=== PATIENT | male | born 1960 | race Caucasian/White ===

== ENCOUNTER → 2016-09-28 | Outpatient (CLI) | payer BC ==
[2016-09-28 09:23] LABS: ALT 40 U/L (21-72); AST 26 U/L (17-59); Alkaline Phosphatase 38 U/L (38-126); Anion Gap 11 mmol/L; Blood Urea Nitrogen 19 mg/dL (9-20); Calcium 9.5 mg/dL (8.4-10.2); Carbon Dioxide 27 mmol/L (22-30); Chloride 104 mmol/L (98-107); Cholesterol 148 mg/dL (<200); Glucose 87 mg/dL (74-99); HDL Cholesterol 60 mg/dL (40-60); Non-African American GFR(MDRD) >60 (>60 ml/min/1.73 sqM); Potassium 4.4 mmol/L (3.5-5.1); Sodium 142 mmol/L (137-145); Total Bilirubin 1.3 mg/dL (0.2-1.3); Total Protein 7.3 g/dL (6.3-8.2); Triglycerides 60 mg/dL (<150)
== END | disposition home or self-care (01) ==
LOC: LABWHC1 08:19
PROVIDERS: ATTEND Internal Medicine Interventional Cardiology
DX: E78.2 Mixed hyperlipidemia (principal)
CPT/HCPCS: 36415; 80053; 80061

== ENCOUNTER → 2018-02-20 | Outpatient (CLI) | payer BC ==
[2018-02-20 10:27] LABS: ALT 47 U/L (21-72); AST 32 U/L (17-59); Albumin 4.6 g/dL (3.5-5.0); Alkaline Phosphatase 37 U/L (38-126); Anion Gap 9 mmol/L; Blood Urea Nitrogen 12 mg/dL (9-20); Calcium 9.8 mg/dL (8.4-10.2); Carbon Dioxide 27 mmol/L (22-30); Chloride 105 mmol/L (98-107); Cholesterol 195 mg/dL (<200); Glucose 104 mg/dL (74-99); HDL Cholesterol 82 mg/dL (40-60); LDL Cholesterol,Calculated 101 mg/dL (0-99); Potassium 4.5 mmol/L (3.5-5.1); Sodium 141 mmol/L (137-145); Total Bilirubin 1.1 mg/dL (0.2-1.3); Total Protein 7.1 g/dL (6.3-8.2); Triglycerides 60 mg/dL (<150)
== END ==
LOC: LABWHC1 09:51
PROVIDERS: ATTEND Internal Medicine Interventional Cardiology
DX: E78.2 Mixed hyperlipidemia (principal)
CPT/HCPCS: 36415; 80053; 80061

== ENCOUNTER → 2020-07-12 | Outpatient (CLI) | payer BC ==
--- NOTE | 2020-07-12 09:56 | US ---
EXAMINATION TYPE: US carotid duplex BILAT DATE OF EXAM: 07/12/2020 COMPARISON: NONE CLINICAL HISTORY: I38 endocarditis,valve unspecified. EXAM MEASUREMENTS: RIGHT: Peak Systolic Velocity (PSV) cm/sec ----- Right CCA: 66.6 ----- Right ICA: 62.9 ----- Right ECA: 41.6 ICA/CCA ratio: 0.9 RIGHT: End Diastole cm/sec ----- Right CCA: 25.9 ----- Right ICA: 27.0 ----- Right ECA: 13.2 LEFT: Peak Systolic Velocity (PSV) cm/sec ----- Left CCA: 54.1 ----- Left ICA: 58.5 ----- Left ECA: 18.7 ICA/CCA ratio: 1.1 LEFT: End Diastole cm/sec ----- Left CCA: 20.2 ----- Left ICA: 28.7 ----- Left ECA: 18.7 VERTEBRALS (direction of flow): Right Vertebral: Antegrade Left Vertebral: Antegrade Rhythm: Normal Mild atherosclerotic changes with no significant velocity elevations. IMPRESSION: 1. Mild atherosclerotic changes with no significant hemodynamic stenosis. Criteria for Assigning % of Stenosis / Diameter reduction (Estimation based on the indirect measurements of the internal carotid artery velocities (ICA PSV). 1. Normal (no stenosis)=ICA PSV < 125 cm/s: ratio < 2.0: ICA EDV<40 cm/s. 2. Less than 50% stenosis=ICA PSV < 125 cm/s: ratio < 2.0: ICA EDV<40 cm/s. 3. 50 to 69% stenosis=ICA PSV of 125 to 230 cm/s: ration 2.0 ? 4.0: ICA EDV 40-100 cm/s. 4. Greater than 70% stenosis to near occlusion= ICA PSV > 230 cm/s: ratio > 4.0: ICA EDV > 100 cm/s. 5. Near occlusion= ICA PSV velocities may be low or undetectable: variable ratio and ICA EDV. 6. Total occlusion=unable to detect flow.
== END | disposition home or self-care (01) ==
LOC: RADUSWWP 09:12
PROVIDERS: ATTEND Family Medicine
DX: I65.23 Occlusion and stenosis of bilateral carotid arteries (principal); I38 Endocarditis, valve unspecified
CPT/HCPCS: 93880

== ENCOUNTER → 2020-07-12 | Outpatient (CLI) | payer BC ==
[2020-07-12 09:30] LABS: HCT 43.8 % (39.0-53.0); MCHC 34.1 g/dL (31.0-37.0); MCV 99.6 fL (80.0-100.0); Mean Platelet Volume 6.5; Platelet Count 161 k/uL (150-450); RDW 12.8 % (11.5-15.5); WBC 4.2 k/uL (3.8-10.6)
[2020-07-12 09:40] LABS: Appearance,Urine Clear (Clear); Bilirubin,Urine Negative (Negative); Blood,Urine Negative (Negative); Color,Urine Yellow; Glucose,Urine (UA) Negative (Negative); Ketones,Urine Negative (Negative); Leukocyte Esterase,Urine Negative (Negative); Nitrite,Urine Negative (Negative); Protein,Urine Negative (Negative); Specific Gravity,Urine 1.022 (1.001-1.035); Urobilinogen,Urine <2.0 mg/dL (<2.0)
[2020-07-12 09:43] LABS: ALT 35 U/L (4-49); AST 32 U/L (17-59); African American GFR (CKD) >90 (>60 ml/min/1.73 sqM); Albumin 4.3 g/dL (3.5-5.0); Alkaline Phosphatase 39 U/L (38-126); Anion Gap 5 mmol/L; Blood Urea Nitrogen 13 mg/dL (9-20); Calcium 9.7 mg/dL (8.4-10.2); Carbon Dioxide 30 mmol/L (22-30); Chloride 104 mmol/L (98-107); Cholesterol 200 mg/dL (<200); Glucose 103 mg/dL (74-99); HDL Cholesterol 75 mg/dL (40-60); LDL Cholesterol,Calculated 109 mg/dL (0-99); Non-African American GFR(CKD) >90 (>60 ml/min/1.73 sqM); Sodium 139 mmol/L (137-145); Total Bilirubin 0.9 mg/dL (0.2-1.3); Triglycerides 78 mg/dL (<150)
[2020-07-12 09:59] LABS: T4, Free (Free Thyroxine) 0.88 ng/dL (0.78-2.19)
--- NOTE | 2020-07-12 10:40 | CT ---
EXAMINATION TYPE: CT heart w calcium score DATE OF EXAM: 07/12/2020 COMPARISON: None. HISTORY: Screening for cardiovascular disorder. 213.9. Endocarditis. Mitral valve prolapse repair. CT DLP: 85.20 mGycm Automated exposure control for dose reduction was used. CT CALCIUM SCORING Coronary calcium is a marker for plaque (fatty deposits) in a blood vessel or atherosclerosis (harden ing of the arteries). The presence and amount of calcium detected in a coronary artery by the CT sca n, indicates the presence and amount of atherosclerotic plaque. These calcium deposits appear years before the development of heart disease symptoms such as chest pain and shortness of breath. A calcium score is computed for each of the coronary arteries based upon the volume and density of th e calcium deposits. This can be referred to as your calcified plaque burden. It does not correspond directly to the percentage of narrowing in the artery but does correlate with the severity of the un derlying coronary atherosclerosis. PROCEDURE TECHNIQUE - Prospective Gating was used. Slice thickness: 3mm. Density threshold (HU): 130, Pixel threshold: 3, Algorithm: discrete. RESULTS Region: LM Calcium Score (Agatston): 0.00 Volume (mm3): 0.00 Mass (g): 0.00 Region: RCA Calcium Score (Agatston): 93.74 Volume (mm3): 93.97 Mass (g): 31.32 Region: LAD Calcium Score (Agatston): 453.27 Volume (mm3): 397.34 Mass (g): 132.45 Region: CX Calcium Score (Agatston): 115.22 Volume (mm3): 93.97 Mass (g): 31.32 Region: PDA Calcium Score (Agatston): 0.00 Volume (mm3): 0.00 Mass (g): 0.00 Total: Calcium Score (Agatston): 662.23 Volume (mm3): 585.28 Mass (g): 195.09 TOTAL CALCIUM SCORE: 662.23 IMPRESSION: Overlying sternal wires are noted. No suspicious findings in the visualized lungs. Calcium Score: 401 or higher Implication: Extensive atherosclerotic plaque Risk of Coronary Artery Disease: High likelihood of at least one significant coronary narrowing. CALCIUM SCORE IMPLICATION RISK OF C ORONARY ARTERY DISEASE 0 No identifiable plaque Very low, generally less than 5% 1-10 Minimal identifiable plaque Very unlikely, less than 10% 11-100 Definite, at least mild atherosclerotic plaque Mild or m inimal coronary narrowings likely 101-400 Definite, at least moderate atherosclerotic plaque Mild coronary ar nito disease highly likely, significant narrowing possible 401 or Higher Extensive atherosclerotic plaque High lik elihood of at least one significant coronary narrowing
[2020-07-12 14:50] LABS: Prostate Specific Antigen 0.6 ng/mL (0.0-4.5)
== END | disposition home or self-care (01) ==
LOC: RADCTMAIN 08:35
PROVIDERS: ATTEND Family Medicine
DX: I25.10 Atherosclerotic heart disease of native coronary artery without angina pectoris (principal)
CPT/HCPCS: 36415; 75571; 80053; 80061; 81003; 82306; 83036; 84153; 84439; 84443; 85027

== ENCOUNTER → 2023-08-01 | Outpatient (CLI) | payer BC ==
--- NOTE | 2023-08-01 10:28 | US ---
EXAMINATION TYPE: US abdomen complete DATE OF EXAM: 08/01/2023 COMPARISON: NONE CLINICAL INDICATION: Male, 63 years old with history of R10.11 RIGHT UPPER QUADRANT PAIN; pain and na usea TECHNIQUE: Multiple sonographic images of the abdomen are obtained. FINDINGS: EXAM MEASUREMENTS: Liver Length: 16 cm Gallbladder Wall: .2 cm CBD: .3 cm Spleen: 12.8 cm Right Kidney: 12.3 x 4.4 x 4.5 cm Left Kidney: 11 x 5.9 x 4.5 cm SPECIAL EDUCATION ADMINISTRATOR NOTES: Pancreas: wnl Liver: wnl Gallbladder: wnl Evidence for sonographic Felipe's sign: CBD: wnl Spleen: wnl Right Kidney: wnl Left Kidney: wnl Upper IVC: wnl Abd Aorta: wnl The liver is homogenous. The intrahepatic portion of the IVC and proximal abdominal aorta are within normal limits. There is no evidence of cholelithiasis. Common bile duct is unremarkable. The visu alized portions of the pancreas are homogenous. The spleen is unremarkable. Kidneys are symmetric a nd free of hydronephrosis. No renal lesions are seen. IMPRESSION: No distinct abnormality seen.
== END | disposition home or self-care (01) ==
LOC: RADUSWWP 09:30
PROVIDERS: ATTEND Family Medicine
DX: R10.11 Right upper quadrant pain (principal); R11.0 Nausea
CPT/HCPCS: 76700

== ENCOUNTER 2024-09-14 09:43 | Day surgery (SDC) | payer BC ==
[2024-09-13 11:52] VITALS: BMI 32.5
[2024-09-14] MEDS: SODIUM CHLORIDE 0.9% 1,000 ML IV SCH (10:19)
[2024-09-14] MEDS: IV FLUID CONTINUATION 1,000 ML IV ONE (10:31)
[2024-09-14 10:42] LABS: Basophils % (A) 1 %; Eosinophils # (A) 0.1 k/uL (0-0.7); Eosinophils % (A) 2 %; HGB 14.5 gm/dL (13.0-17.5); Lymphocytes # (A) 1.8 k/uL (1.0-4.8); Lymphocytes % (A) 34 %; MCH 32.7 pg (25.0-35.0); MCHC 33.7 g/dL (31.0-37.0); Mean Platelet Volume 6.5; Monocytes # (A) 0.3 k/uL (0-1.0); Monocytes % (A) 6 %; Neutrophils % (A) 56 %; Platelet Count 148 k/uL (150-450); RBC 4.43 m/uL (4.30-5.90); WBC 5.3 k/uL (3.8-10.6)
[2024-09-14] MEDS: APIXABAN 5 MG TAB PO SCH ×2 (10:50→20:51)
[2024-09-14] MEDS: MIDAZOLAM 2 MG/2 ML VIAL IV ONE (10:51)
[2024-09-14 10:53] LABS: African American GFR (CKD) >90 (>60 ml/min/1.73 sqM); Anion Gap 8 mmol/L; Blood Urea Nitrogen 14 mg/dL (9-20); Calcium 9.5 mg/dL (8.4-10.2); Carbon Dioxide 25 mmol/L (22-30); Chloride 106 mmol/L (98-107); Glucose 107 mg/dL (74-99); Non-African American GFR(CKD) >90 (>60 ml/min/1.73 sqM); Sodium 139 mmol/L (137-145)
[2024-09-14] MEDS: HEPARIN SODIUM,PORCINE 10,000 UNIT in SODIUM CHLORIDE 0.9% 1,000 ML IRRIGATION ONE (11:00)
[2024-09-14] MEDS: HEPARIN SODIUM,PORCINE (1 ML) 2,500 UNIT in SODIUM CHLORIDE 0.9% 250 ML IRRIGATION ONE (11:00)
[2024-09-14] MEDS ORDERED: LIDOCAINE 4% LTA KIT (4 ML) TOPICAL ONE (11:08)
[2024-09-14] MEDS ORDERED: ceFAZolin 1 GM/50 ML BAG (PMX) ONE (11:08)
[2024-09-14] MEDS ORDERED: ISOPROTERENOL 250 MCG/1.25 ML SYR IV ONE (11:08)
[2024-09-14] MEDS ORDERED: SUCCINYLCHOLINE CHLORIDE 200 MG/10 ML VIAL IV ONE (11:08)
[2024-09-14] MEDS ORDERED: HEPARIN SODIUM,PORCINE 10,000 UNIT/ML 1 ML VIAL ONE (11:08)
[2024-09-14] MEDS ORDERED: HYDROmorphone (PF) 1 MG/ML ONE (11:08)
[2024-09-14] MEDS ORDERED: METOPROLOL TARTRATE 5 MG/5 ML VIAL IVP ONE (11:08)
[2024-09-14] MEDS ORDERED: ROCURONIUM 10 MG/ML (5 ML VIAL) IV ONE (11:08)
[2024-09-14] MEDS ORDERED: PROPOFOL 10 MG/ML 20 ML VIAL IV ONE (11:08)
[2024-09-14] MEDS ORDERED: MIDAZOLAM 2 MG/2 ML VIAL ONE (11:08)
[2024-09-14] MEDS ORDERED: WATER FOR INJECTION, STERILE 10 ML VIAL IV ONE (11:08)
[2024-09-14] MEDS ORDERED: fentaNYL (PF) 50 MCG/ML 2 ML AMP ONE (11:08)
[2024-09-14] MEDS: HEPARIN SOD,PORK IN 0.45% NACL 25,000 UNIT in 0.45% NACL 1 250ML.BAG IV ONE (11:55)
[2024-09-14] MEDS: LIDOCAINE 1% INJ 10MG/ML (20 ML MDV) SQ ONE (11:57)
[2024-09-14] MEDS: HEPARIN SODIUM (1,000 UNIT/ML) 1,000 UNIT in SODIUM CHLORIDE 0.9% 1,000 ML IRRIGATION ONE (14:00)
[2024-09-14] MEDS: SODIUM CHLORIDE 0.9% 1,000 ML IV ONE (14:26)
[2024-09-14] MEDS: IOPAMIDOL-370 100ML BTL INJ ONE (14:26)
--- NOTE | 2024-09-14 15:43 | P.EPPROC ---
- EP Procedure Note Electrophysiology Procedure Note: PROCEDURE A. fib ablation with PVI, left atrial roof ablation and left atrial septal ablation Ablation of the slow pathway for treatment of inducible AV jaycob reentrant tachycardia DIAGNOSIS Atrial fibrillation, symptomatic, refractory to therapy, recurrent palpitations RESULT No left atrial appendage mass seen on intracardiac echo Successful A. 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 Successful ablation of the slow pathway, AV jaycob reentry rendered noninducible No evidence for phrenic nerve injury Esophageal deflection YES On high-dose Isopril and burst stimulation down to 250 ms from the high right atrium, AV jaycob reentry could not be induced but A-fib was induced Electrical cardioversion with a synchronized shock across the chest YES PROCEDURE DETAILS Written informed consent prior to procedure. Patient brought to the EP lab. General anesthesia given. Heparin administered. A city maintained above 300 seconds Both groins prepped and draped per protocol and venous sheaths placed. Esophagus intubated, circa catheter for temperature monitoring an endoscope for possible esophageal deflection. Phrenic nerve monitoring performed. Esophageal temperature monitoring performed. Esophageal deflection performed if circa catheter overlapping with the balloon or circa temperature less than 27.5C Intracardiac echocardiography performed. Pericardium evaluated. Left atrial appendage evaluated. Left atrium evaluated along with pulmonary veins Transseptal catheterization performed under fluoroscopic guidance and intracardiac echo guidance Cryoablation sheath exchanged, balloon catheter along with achieve catheter placed in the left atrium. Pulmonary veins isolated in the following sequence: Left superior pulmonary vein followed by left inferior pulmonary vein, followed by right inferior pulmonary vein and lastly right superior pulmonary vein. Phrenic nerve stimulation along with capture thresholds within the SVC and right superior pulmonary vein to identify the phrenic nerve proximity to the cryo- balloon. Pulmonary veins isolated and confirmed with entrance and exit block. Phrenic nerve integrity confirmed at the end of the procedure Ablation of the left atrial roof performed with sequential lesions from the left superior to the right superior pulmonary veins. Ablation of the electrograms confirmed Ablation of the left atrial septum performed with cannulation of the superior branch of the right inferior to achieve ablation of the posterior septum of the left atrium. Ablation of electrograms confirmed Following that complete EP study was performed both on and off Isopril. With burst pacing from the high right atrium, on Isopril, AV jaycob reentry was induced. Onset with a long AK interval, easily terminated with ventricular pacing. Absence of any antegrade or retrograde accessory pathway conduction. Jaycob response to Para-Hisian pacing noted Successful mapping and ablation of the slow pathway and inducibility of AV jaycob reentry was completely eliminated Following that testing was performed on high-dose Isopril and no further AV jaycob reentry could be induced. However with aggressive protocol on high-dose Isopril, A-fib was induced. Electrical cardioversion was successfully performed after turning off Isopril Diagnostic catheters for the high right atrium, His bundle, coronary sinus placed. LA and RA pressures recorded LA pressure: Diagnostic EP study with coronary sinus pacing and recording Baseline measurements: AH interval 63 ms, HV interval 67 ms Prolonged AK interval which included a prolonged intra-atrial conduction time Frequent PVCs noted in the ambulance state and on Isopril Sinus node recovery x 605 100 ms were 1057 and 1085 ms. Corrected sinus node recovery times were within normal limits AV node Wenckebach block 380 ms No evidence for antegrade or retrograde accessory pathway conduction Evidence of antegrade slow pathway conduction and induction of AV jaycob reentry with onset with a long AK interval, easily terminated with RV pacing Entrainment of SVT could not be performed with RV pacing as a result Venous sheaths were removed and hemostasis assured with a closure device. Patient extubated and transferred to recovery PROCEDURES PERFORMED Diagnostic EP study CS pacing and recording Left and right transseptal catheterization Catheter the mapping of the tachycardia Intracardiac echocardiography Pulmonary vein isolation with transseptal and comprehensive EPS, [id number] Drug infusion, +[id number] Left atrial roof line, +[id number] Linear ablation, left atrium, +[id number] Ablation of the slow pathway for management of AV jaycob reentry, +[id number] Electrical cardioversion with a synchronized shock across the chest [id number]
--- NOTE | 2024-09-14 15:51 | P.HPCAR ---
History of Present Illness This is Dr. Reno dictating an H/P on this patient The patient was interviewed and examined IMPRESSION / ASSESSMENT: Recurrent paroxysmal atrial fibrillation despite atrial fibrillation ablation in 2016 at the [facility] Mitral valve repair in [facility] Symptomatic episodes Dyslipidemia PLAN: Proceed with A-fib ablation and a diagnostic EP study IV heparin dose calculated 1 dose of IV antibiotics HPI Patient continues to have recurrent episodes of palpitations which are quite symptomatic. This increased after I asked him to hold flecainide and metoprolol. No dizziness no lightheadedness no chest pain No fever chills cough expectoration ROS: No fever chills or rigors, no cough, phlegm or expectoration, no nausea, vomiting or diarrhea, no hematuria, dysuria, no musculoskeletal complaints, no strokes or seizures, no skin lesions. EXAMINATION: Blood pressure 148/77 mmHg afebrile normal respirations Heart sounds S1-S2 normal Breath sounds are clear No rhonchi no crackles No murmurs no gallop No lower extremity edema No JVD REVIEW OF LABS, ECG & MEDICAL DATA White count 5.3 thousand, hematocrit 43 and platelet count 148,000 Normal electrolytes Physical Exam Vitals: Vital Signs Temp Pulse Resp BP BP Pulse Ox 09/14/24 15:36 97.1 F L 87 18 148/77 97 09/14/24 10:33 98 F 50 L 16 150/73 153/88 96 Intake and Output 09/14/24 09/14/24 09/14/24 06:59 14:59 22:59 Intake Total 1341.6 Balance 1341.6 Intake: IV 1341.6 Other: Weight 106.8 kg Past Medical History Past Medical History: Atrial Fibrillation, Hyperlipidemia, Hypertension Additional Past Medical History / Comment(s): Hx SOB and bradycardia, "borderline hypertension". History of Any Multi-Drug Resistant Organisms: None Reported Past Surgical History: Orthopedic Surgery Additional Past Surgical History / Comment(s): Mitral valve repair, left knee arthroscopy, cardioversion, [place]. Past Anesthesia/Blood Transfusion Reactions: Previous Problems w/ Anesthesia Additional Past Anesthesia/Blood Transfusion Reaction / Comment(s): "Anesthesia resistent, do not go to sleep easily". Smoking Status: Never smoker - Past Family History Mother Family Medical History: No Reported History Father Family Medical History: Cancer Additional Family Medical History / Comment(s): Prostate cancer. Physical Examination Vital Signs Temp Pulse Resp BP BP Pulse Ox 09/14/24 15:36 97.1 F L 87 18 148/77 97 09/14/24 10:33 98 F 50 L 16 150/73 153/88 96 Intake and Output 09/14/24 09/14/24 09/14/24 06:59 14:59 22:59 Intake Total 1341.6 Balance 1341.6 Intake: IV 1341.6 Other: Weight 106.8 kg Results 09/14/24 10:15 09/14/24 10:15 CBC 09/14/24 Range/Units 10:15 WBC 5.3 (3.8-10.6) k/uL RBC 4.43 (4.30-5.90) m/uL Hgb 14.5 (13.0-17.5) gm/dL Hct 43.0 (39.0-53.0) % Plt Count 148 L (150-450) k/uL Comprehensive Metabolic Panel 09/14/24 Range/Units 10:15 Sodium 139 (137-145) mmol/L Potassium 4.0 (3.5-5.1) mmol/L Chloride 106 (98-107) mmol/L Carbon Dioxide 25 (22-30) mmol/L BUN 14 (9-20) mg/dL Creatinine 0.89 (0.66-1.25) mg/dL Glucose 107 H (74-99) mg/dL Calcium 9.5 (8.4-10.2) mg/dL Current Medications Generic Name Dose Route Start Last Admin Trade Name Freq PRN Reason Stop Dose Admin Acetaminophen 650 mg 09/14/24 15:45 Acetaminophen Tab 325 Mg Tab PO Q6HR PRN Mild Pain (Scale 1 to 3) Apixaban 5 mg 09/14/24 10:30 09/14/24 10:50 Apixaban 5 Mg Tab PO 10/14/24 10:29 5 mg BID AMPARO Administration Protocol Apixaban 5 mg 09/14/24 21:00 Apixaban 5 Mg Tab PO BID [facility] Protocol Atorvastatin Calcium 40 mg 09/15/24 09:00 Atorvastatin 40 Mg Tab PO DAILY [facility] Flecainide Acetate 50 mg 09/14/24 21:00 Flecainide 50 Mg Tab PO BID [facility] Lactated Ringer's 1,000 mls @ 20 mls/hr 09/14/24 07:25 Lactated Ringers IV 10/14/24 07:24 .Q24H AMPARO Acetaminophen 1,000 mg/ IV 100 mls @ 400 mls/hr 09/14/24 15:45 Solution IVPB 09/14/24 15:59 ONCE ONE Non-Formulary Medication 50 mg 09/14/24 21:00 Metoprolol Tartrate [Lopressor] PO BID AMPARO Sodium Chloride 12 ml 09/14/24 15:45 Sodium Chloride 0.9% Flush 10 Ml Syringe IV Q12HR PRN Line Flush Intake and Output 09/14/24 09/14/24 09/14/24 06:59 14:59 22:59 Intake Total 1341.6 Balance 1341.6 Intake: IV 1341.6 Other: Weight 106.8 kg Patient Weight 09/15/24 06:59 Weight 106.8 kg 09/14/24 10:15 09/14/24 10:15
[2024-09-14] MEDS: LACTATED RINGERS 1,000 ML IV SCH (17:07)
[2024-09-14] MEDS: ACETAMINOPHEN IV (For NPO) 1,000 MG in EMPTY BAG 1 BAG IVPB ONE (18:34)
[2024-09-14] MEDS: METOPROLOL TARTRATE 50 MG TAB PO SCH (20:51)
[2024-09-14] MEDS: FLECAINIDE 50 MG TAB PO SCH (20:54)
[2024-09-14] MEDS ORDERED: APIXABAN 5 MG TAB PO SCH (21:00)
[2024-09-15] MEDS: ACETAMINOPHEN TAB 325 MG TAB PO PRN (01:27)
[2024-09-15 07:29] VITALS: BP 132/82; PULSE 75; RESP 18; TEMP 98
[2024-09-15] MEDS: ATORVASTATIN 40 MG TAB PO SCH (07:55)
--- NOTE | 2024-09-16 12:23 | P.DS ---
Providers Attending physician: Doug Reno Primary care physician: [facility] Course: Patient is doing well. Mild sore throat no chest pain no dizziness no lightheadedness ambulating around the room On examination heart sounds are normal Breath sounds are clear Groins of healed well no hematoma Blood pressure is normal Impression history of paroxysmal atrial fibrillation status post A-fib ablation with PVI left atrial roof and left atrial septal ablation Inducible AV betty reentry status post slow pathway ablation and tachycardia rendered noninducible Plan Reduce the dose of metoprolol Continue flecainide for now Uninterrupted anticoagulation for the next 2 months Long-term anticoagulation indicated Plan - Discharge Summary Discharge Rx Participant: Yes New Discharge Prescriptions: No Action Metoprolol Tartrate [Lopressor] 75 mg PO BID Flecainide [Tambocor] 50 mg PO BID Atorvastatin [Lipitor] 40 mg PO DAILY Apixaban [Eliquis] 5 mg PO BID Discharge Medication List Apixaban [Eliquis] 5 mg PO BID 09/13/24 [History] Atorvastatin [Lipitor] 40 mg PO DAILY 09/13/24 [History] Flecainide [Tambocor] 50 mg PO BID 09/13/24 [History] Metoprolol Tartrate [Lopressor] 75 mg PO BID 09/13/24 [History] Follow up Appointment(s)/Referral(s): Devaughn Alaniz DO [STAFF PHYSICIAN] - 09/23/24 10:15 am Patient Instructions/Handouts: Cardiac Ablation (DC) Activity/Diet/Wound Care/Special Instructions: Post EP study - Ablation instructions 1. Keep access sites dry for 2 days. 2. No heavy lifting or straining for 2 days. 3. Avoid bending the hips repeatedly for 2 days. 4. You may go up and down stairs slowly 5. If you have had an ablation for atrial fibrillation or atrial flutter and are on a blood thinner, do not stop the blood thinner even temporarily for 3 months post ablation Call if the following is noted 1. Bleeding, increasing swelling or pain at the access sites. 2. Increasing chest discomfort, especially upon taking a deep breath. 3. Increasing shortness of breath, at rest or with exertion. 4. Undue cough / phlegm 5. Difficulty or pain while swallowing. 6. Pain or change in color in the extremities. 7. Fever, chills, rigors. 8. Increasing headache or neurologic symptoms. 9. Dizziness, fainting, palpitations For patients who have undergone an A-fib ablation /atrial flutter ablation Strict instruction; do NOT stop anticoagulation (Eliquis/Xarelto/Pradaxa) for the next 2 months temporarily, for any elective, nonurgent surgery. This increases the risk of stroke, post A-fib ablation Discharge Disposition: HOME SELF-CARE
== END 2024-09-15 10:06 | disposition home or self-care (01) ==
LOC: CATHEP 09:43 → 6NMEDSUR 15:16 → CATHEP 09-15 10:06
PROVIDERS: ATTEND Internal Medicine Clinical Cardiac Electrophysiology
DX: I48.0 Paroxysmal atrial fibrillation (principal); I10 Essential (primary) hypertension; E78.5 Hyperlipidemia, unspecified; Z91.89 Other specified personal risk factors, not elsewhere classified; Z79.01 Long term (current) use of anticoagulants; Z79.899 Other long term (current) drug therapy
CPT/HCPCS: 93623; 93655; 93656; 93657; 86900; 86901; 80048; 85025; 86850; C1894; C1769; C1760 ×2; C1730 ×3; C1731; C1759; C1733; C1766; C1732; J2250; J0330; J1644 ×4; J2003; J3010; J1171; J0690; J0131; J2704; Q9967

== ENCOUNTER 2025-04-01 09:40 | Day surgery (SDC) | payer BC ==
[~2025-04-01 09:40] MED LIST: ALPRAZolam 0.25 MG TAB PO PRN; HEPARIN SODIUM,PORCINE (1 ML) 2,500 UNIT in SODIUM CHLORIDE 0.9% 250 ML IRRIGATION PRN; HEPARIN SODIUM,PORCINE 10,000 UNIT in SODIUM CHLORIDE 0.9% 1,000 ML IRRIGATION PRN; NITROGLYCERIN SL TABS 0.4 MG TAB SUBLINGUAL PRN
[2025-04-01] MEDS: SODIUM CHLORIDE 0.9% 1,000 ML in EMPTY BAG 1 BAG IV SCH (10:23)
[2025-04-01] MEDS: ALPRAZolam 0.5 MG TAB PO PRN (10:25)
[2025-04-01] MEDS: ASPIRIN 325 MG TAB PO STA (10:25)
[2025-04-01 10:29] LABS: Basophils # (A) 0.04 10*3/uL (0.00-0.10); Basophils % (A) 0.6 %; Eosinophils # (A) 0.19 10*3/uL (0.04-0.35); Eosinophils % (A) 2.9 %; HCT 41.8 % (39.6-50.0); HGB 15.0 g/dL (13.0-17.0); Lymphocytes # (A) 2.26 10*3/uL (0.90-5.00); Lymphocytes % (A) 34.8 %; MCH 33.7 pg (27.0-32.0); MCHC 35.9 g/dL (32.0-37.0); MCV 93.9 fL (80.0-97.0); Monocytes # (A) 0.61 10*3/uL (0.20-1.00); Monocytes % (A) 9.4 %; Neutrophils # (A) 3.37 10*3/uL (1.80-7.70); Neutrophils % (A) 52.0 %; Platelet Count 156 10*3/uL (140-440); RBC 4.45 10*6/uL (4.40-5.60); RDW 13.1 % (11.5-14.5); WBC 6.49 10*3/uL (4.50-10.00)
[2025-04-01 10:31] VITALS: RESP 18; TEMP 97.8
[2025-04-01] MEDS: IV FLUID CONTINUATION 1,000 ML IV ONE (10:32)
[2025-04-01 10:46] LABS: African American GFR (CKD) >90 (>60 ml/min/1.73 sqM); Anion Gap 10 mmol/L; Blood Urea Nitrogen 16 mg/dL (9-20); Calcium 9.2 mg/dL (8.4-10.2); Carbon Dioxide 18 mmol/L (22-30); Chloride 107 mmol/L (98-107); Glucose 121 mg/dL (74-99); Non-African American GFR(CKD) >90 (>60 ml/min/1.73 sqM); Sodium 135 mmol/L (137-145)
[2025-04-01 11:07] LABS: Potassium 7.1 mmol/L (3.5-5.1)
[2025-04-01] MEDS: fentaNYL (PF) 50 MCG/ML 2 ML AMP IVP ONE (12:18)
[2025-04-01] MEDS: LIDOCAINE 1% INJ 10MG/ML (20 ML MDV) SQ ONE (12:18)
[2025-04-01] MEDS: MIDAZOLAM 2 MG/2 ML VIAL IVP ONE ×2 (12:18)
[2025-04-01] MEDS: VERAPAMIL SYRINGE (5 MG/10 ML) INTRAARTER ONE (12:19)
[2025-04-01] MEDS: HEPARIN SODIUM 1,000 UN/ML (10ML VL) IVP ONE (12:24)
[2025-04-01] MEDS: IOPAMIDOL-370 100ML BTL INJ ONE (12:29)
[2025-04-01 16:38] VITALS: BP 102/72; PULSE 78
--- NOTE | 2025-04-02 14:30 | P.CARDCATH ---
Description of Procedure: PROCEDURES PERFORMED: Left heart catheterization, bilateral coronary angiography, ultrasound guided arterial access INDICATION: Abnormal stress test, ventricular tachycardia CONSENT:I have discussed the risks, benefits and alternative therapies for the above-mentioned procedure and for both sedation/analgesia as well as necessary b lood product administration, if indicated, as they pertain to this patient. The patient has indicated understanding and acceptance of the risks and procedures discussed. PROCEDURE: After the risks, benefits and alternatives of the above mentioned procedure explained in detail with the patient, informed consent was obtained. Patient was taken to the catheterization lab and prepped and draped in usual fashion. Ultrasound guidance was used to assess for arterial access. 1% lidocaine was used to anesthetize the right radial artery. A 6-British sheath was placed in the right radial artery using modified Seldinger technique and ultrasound guidance. Left coronary angiography was performed with a 5-British JL 3.5 catheter and right coronary angiography was performed with a 5-British FR5 catheter in various views. A 5-British FR5 catheter was inserted into the left ventricle and pressure measurements were obtained. The right radial sheath was removed and a TR band was placed with hemostasis achieved. The patient tolerated the procedure well. Patient was transported back to the post catheterization holding area in stable condition. Conscious Sedation: Patient was monitored under the direct supervision of myself for conscious sedation using Versed and fentanyl for a total duration of 15 minutes HEMODYNAMICS: Aorta: 112/72 LV: 118/5, LVEDP 10 SELECTIVE CORONARY ARTERIOGRAPHY: LEFT MAIN: The left main is a large caliber vessel which bifurcates into the LAD and circumflex. There is no significant stenosis. LEFT ANTERIOR DESCENDING CORONARY ARTERY: LAD is a large caliber vessel which wraps around to the apex. There are mild luminal irregularities of the LAD with 10% stenosis LEFT CIRCUMFLEX CORONARY ARTERY: Left circumflex is a moderate caliber vessel without significant stenosis. RIGHT CORONARY ARTERY: The right coronary artery is a large caliber vessel which gives off a PDA and PLV branch and is the dominant vessel. There is no significant stenosis. FINAL IMPRESSION: 1. Relatively normal coronary arteries as described above with only mild luminal irregularities of LAD. 2. Normal left sided filling pressures PLAN: 1. Aggressive risk factor modification per most recent ACC/AHA guidelines. 2. Follow-up in the office in 1-2 weeks.
== END 2025-04-01 15:45 | disposition home or self-care (01) ==
LOC: CATHCVL 09:40
PROVIDERS: ATTEND Internal Medicine
DX: I47.29 Other ventricular tachycardia (principal); I25.10 Atherosclerotic heart disease of native coronary artery without angina pectoris; I48.0 Paroxysmal atrial fibrillation; I48.4 Atypical atrial flutter; E78.2 Mixed hyperlipidemia; I77.810 Thoracic aortic ectasia; H93.13 Tinnitus, bilateral; Z79.01 Long term (current) use of anticoagulants; Z79.899 Other long term (current) drug therapy; Z86.79 Personal history of other diseases of the circulatory system; Z98.890 Other specified postprocedural states
CPT/HCPCS: 93458; 80048; 84132; 85025; C1769; C1894; J2250; J2003; J3010; J1644; Q9967